=== PATIENT | female | born 1945 | race Caucasian/White ===

== ENCOUNTER 2017-02-10 11:58 | Observation (INO) ==
[2017-02-10] MEDS ORDERED: MORPHINE 2 MG/1 ML SYRINGE IV PRN (12:21)
[2017-02-10] MEDS ORDERED: ASPIRIN 325 MG TABLET PO STA (12:21)
[2017-02-10] MEDS ORDERED: ONDANSETRON 4 MG/2 ML VIAL IV PRN ×2 (12:21→17:03)
[2017-02-10 12:48] LABS: Basophils % 0.5 % (0.0-0.8); Eosinophils # 0.2 10*3/uL (0.0-0.87); Eosinophils % 2.8 % (0.00-10.9); Hematocrit 37.8 VOL% (35.7-47.0); Immature Granulocytes % 0.5 %; Immature Granulocytes Absolute 0.03 #; Lymphocytes % 31.9 % (21.3-54.2); Mean Corpuscular HGB Conc 34.4 GM/DL (32-36); Mean Corpuscular Hemoglobin 30 PG (27-34); Mean Corpuscular Volume 87.5 FL (87-102); Mean Platelet Volume 10.2 FL (9.6-12.0); Monocytes # 0.6 10*3/uL (0.11-0.8); Monocytes % 9.6 % (1.7-12.7); Neutrophils # 3.5 10*3/uL (1.4-7.4); Neutrophils % 54.7 % (38.7-73.9); Platelet Count 165 T/CUMM (130-400); Red Blood Count 4.32 MC/CUMM (3.8-5.5); Red Cell Distribution Width 14.2 % (9.3-17.3); White Blood Count 6.3 T/CUMM (4-12)
--- NOTE | 2017-02-10 12:51 | Emergency Department Note ---
Tee Painter Manpreet, am scribing for, and in the presence of, Jean Marie Conway MD 12: 32. Zoraida Painter James D, MD, personally performed the services described in this documentation, ascribed by Franko Oliveira in my presence, and it is both accurate and complete . Arrival - Arrival Chief Complaint: Chest Pain Stated Complaint: chest pain sob ED Nursing Triage Note: PT SENT FROM [facility] FOR EVALUATION OF CHEST PAIN. PT WAS THERE FOR EGD WHEN SHE INFORMED THEM SHE HAD CHEST PAIN AND SOB SINCE LAST TUESDAY. PT STATES PAIN IS ON THE LEFT AND DECRIBES "A MUSCLE HURTING." Mode of Arrival: Ambulatory Limitations: No Limitations Source: Patient Time Seen by Provider: 02/10/17 12:20 - History of Present Illness HPI Narrative: Pt is a 71 y/o female who is sent from the [facility] for further evaluation for her CP. Pt states the CP has been present since 02/04/17 and radiates to her back. Pt reports of SOB with the CP and walking. Pt's GI doctor is Dr. Teran. Pt was getting an upper scope because she had problem swallowing. No other pains/complaints reported to the ED. Onset (ago): day(s) Consistency: constant Severity: moderate Severity scale (1-10): 3 Allergies/Adverse Reactions: Allergies Allergy/AdvReac Type Severity Reaction Status Date / Time No Known Allergies Allergy Verified 02/10/17 12:12 Review of System - Review of System 12 point system: reviewed and no additional remarkable complaints except as stated - Review of System Constitutional: Absent: chills, diaphoresis, fever Head/Ears/Nose/Throat: Absent: sore throat Respiratory: Present: respiratory distress. Absent: cough Cardiovascular: Present: chest pain, dyspnea on exertion Gastrointestinal: Absent: abdominal pain, nausea, vomiting Musculoskeletal: Present: back pain. Absent: arm pain Neurological: Absent: headache, numbness, paresthesias Medical,Surgical,& Family Hx - Medical History Cardio: History of: Hypertension Endocrine: History of: Dyslipidemia, Thyroid Disorder Respiratory: History of: Asthma, COPD Gastrointestinal: History of: GERD - Surgical History HEENT Surgeries: Surgical HX of: Thyroid Surgery - Social History Smoking Status: Never smoker Frequency of Alcohol Use: None Type of Drug Use: None Exam Vital Signs: Vital Signs Temperature 97.4 F L 02/10/17 13:04 Pulse Rate 64 02/10/17 13:04 Respiratory Rate 18 02/10/17 13:04 Blood Pressure 139/74 02/10/17 13:04 O2 Sat by Pulse Oximetry 100 02/10/17 12:41 GENERAL: This is a well-nourished well-developed white female in no apparent distress. VITAL SIGNS: Reviewed HEENT: Head is atraumatic and normocephalic. Pupils are equal round react to light. Extraocular movements are intact. Oropharynx is benign with moist mucous membranes. NECK: Neck is soft and supple without tenderness. There are no masses. There is no lymphadenopathy. LUNGS: Lungs are clear to auscultation. Chest rises symmetrically. There is no chest wall tenderness. CV: Heart is regular rate and rhythm without murmurs rubs or gallops. ABDOMEN: Abdomen is soft, nontender to palpation. There are no abdominal abnormal masses palpated. There is no organomegaly. Bowel sounds are present and active. SKIN: Skin is warm and dry. No rash. EXTREMITIES: Patient has full range of motion without tenderness. There is no pedal edema. NEUROLOGIC: Awake alert and oriented 4. Cranial nerves II through XII are grossly intact. Motor is 5 over 5 in all extremities bilaterally. Course - Consultations Consultation #1: Discussed with hospitalist. Patient will be admitted to their service. Time: 15:30 Results - Labs CBC & BMP: 02/10/17 12:40 02/10/17 12:40 Lab Results: I have reviewed the patients labs - EKG EKG results: interpreted by ERMD - Impressions EKG: Normal sinus rhythm with rate of 62, low voltage QRS, nonspecific ST-T wave changes. - Diagnostic Findings Procedure: Chest x-ray: image reviewed by me (No infiltrates, no pleural effusions.) Disposition Clinical Impression: Chest pain Case discussed with: patient Condition: Stable
[2017-02-10 12:58] LABS: PT Patient Result 11.1 SECS; Partial Thromboplastin Time 25.6 SECS (0-40)
--- NOTE | 2017-02-10 13:01 | XRay Report ---
XR chest 2V Indication: Chest pain. Chest 2 views: No comparison. Heart size is normal. Aorta is slightly tortuous. Mediastinal contours are within normal limits. No discrete infiltrates are shown, but there is mild peribronchial thickening noted with some degree of hyperinflation. Pleural spaces are clear. Impression: Airways disease such as bronchitis or viral syndrome. PROCEDURE INTERPRETED AT [facility] DEPARTMENT OF RADIOLOGY Final Report Signed by: Juni Gross M.D.
[2017-02-10] MEDS ORDERED: ASPIRIN 325 MG TABLET ONE (13:07)
[2017-02-10 13:10] LABS: Albumin 3.5 G/DL (3.4-5.0); Bilirubin,Total 0.4 MG/DL (0.2-1.0); Calcium 9.3 MG/DL (8.5-10.1); Osmolality,Calculated 278.5 MOS/KG (273-304); Potassium 3.3 MMOL/L (3.5-5.1)
[2017-02-10] MEDS ORDERED: DOCUSATE SODIUM 100 MG CAPSULE PO PRN (17:03)
[2017-02-10] MEDS ORDERED: guaiFENesin/DM ER 600-30 MG TABLET PO PRN (17:03)
[2017-02-10] MEDS ORDERED: ACETAMINOPHEN 325 MG TABLET PO PRN (17:03)
--- NOTE | 2017-02-10 17:19 | Hospitalist History & Physical ---
Assessment and Plan - Time spent with patient Time spent with patient: Greater than 30 minutes (1) Chest pain Status: Acute Assessment and plan: Patient is a 71-year-old female admitted for evaluation of atypical chest pain. Chest pain symptoms present for the past 6 days. Patient has not identified any precipitating or relieving factors. She denies previous similar symptoms. She reports previous ischemic heart disease evaluation including nuclear medicine stress test and cardiac catheterization 5 years ago. By her report all testing was normal. Her current symptoms are not similar to her symptoms prior to previous stress test and LHC. Ischemic heart disease risk factors include essential hypertension, dyslipidemia, and obesity. Recommend observation status with telemetry monitoring, cycle cardiac enzymes, stress echocardiogram, repeat EKG in a.m. I have low clinical suspicion for acute coronary syndrome. Current Visit: Yes (2) Obstructive sleep apnea Status: Chronic Assessment and plan: Overnight CPAP with low flow oxygen therapy. Patient's daughter volunteers to bring patient's admission from home for patient's use while hospitalized. Continue telemetry monitoring and continuous pulse oximetry monitoring. Minimize use of sedative narcotic medications that might increase CO2 retention. Current Visit: Yes (3) Dyslipidemia Status: Chronic Assessment and plan: Recommend diet modification to decrease total cholesterol and LDL cholesterol while increasing HDL cholesterol. Check fasting lipid panel in a.m. Current Visit: Yes (4) Pulmonary hypertension Status: Chronic Assessment and plan: Patient reports completing previous right heart catheterization to document pulmonary hypertension. She does not recall right heart or pulmonary artery pressures. No specific medications on record as treatment for suspected pulmonary hypertension. Current Visit: Yes (5) COPD (chronic obstructive pulmonary disease) Status: Chronic Assessment and plan: Without acute exacerbation; continue supplemental oxygen as needed and nebulized bronchodilator therapy. Current Visit: Yes (6) Hypokalemia Status: Acute Assessment and plan: Supplements ordered. Check serum magnesium level, supplement as indicated. Current Visit: Yes History of Present Illness Chief complaint: Atypical chest pain History of present illness: Ms. Zuniga is a 71 year old female referred from outpatient endoscopy suite for evaluation of chest pain complaints. Patient presented for scheduled upper endoscopy. During the intake process she casually mentioned that she had left chest pressure. Staff referred patient to the hospital emergency department for additional evaluation. Patient was not seen by emergency department attending but rather hospitalists were consulted to admit patient. Patient states that her current chest pressure has been present for several weeks. She has not identified any precipitating or relieving factors. She denies formal dysphasia. As mentioned above she has not identified any precipitating or relieving factors. She is not tried any medications to decrease her chest discomfort. She denies associated diaphoresis, nausea, vomiting, palpitations, increased work of breathing, recent systemic fever, or shortness of breath. Her only known ischemic heart disease risk factors include essential hypertension, dyslipidemia, and obesity. She reports previous ischemic heart disease workup including nuclear medicine stress test and left heart catheterization approximately 5 years ago. She reports that all testing was normal and no additional medications were prescribed. Home Medications Medication Instructions Recorded Confirmed Type Albuterol Tab [Proventil Tab] 1 mg PO TID 02/10/17 02/10/17 History Atenolol [Atenolol] 50 mg PO QAM 02/10/17 02/10/17 History Cetirizine Tab [ZyrTEC Tab] 10 mg PO BEDTIME 02/10/17 02/10/17 History Cholecalciferol (Vitamin D3) 2,000 unit PO QAM 02/10/17 02/10/17 History [Vitamin D3] Citalopram [CeleXA] 40 mg PO QAM 02/10/17 02/10/17 History Esomeprazole Magnesium 40 mg PO BEDTIME 02/10/17 02/10/17 History [Esomeprazole] Ferrous Sulfate Tab [Feosol 325 mg PO QAM 02/10/17 02/10/17 History Original Tab] Fluticasone/Vilanterol [Breo 1 puff INH QAM 02/10/17 02/10/17 History Ellipta 200-25 Mcg INH] Gabapentin [Gabapentin] 300 mg PO BEDTIME 02/10/17 02/10/17 History Montelukast Tab [Singulair Tab] 10 mg PO BID 02/10/17 02/10/17 History Potassium Chloride 10 meq PO QAM 02/10/17 02/10/17 History Rosuvastatin [Crestor] 10 mg PO QAM 02/10/17 02/10/17 History hydroCHLOROthiazide 25 mg PO QAM 02/10/17 02/10/17 History [Hydrochlorothiazide] Allergies Allergy/AdvReac Type Severity Reaction Status Date / Time No Known Allergies Allergy Verified 02/10/17 12:12 Medical,Surgical,& Family Hx - Medical History Cardio: History of: Hypertension HEENT: History of: Ear Problem (She wears bilateral hearing aids for sounding amplification ) Endocrine: History of: Dyslipidemia, Thyroid Disorder Respiratory: History of: Asthma, COPD, Obstructive Sleep Apnea, Pulmonary Hypertension (Right heart catheterization completed to confirm this diagnosis 5 years ago) Genitourinary: History of: Bladder Problem (Patient believes she may have developed urinary retention. ) Gastrointestinal: History of: GERD - Surgical History HEENT Surgeries: Surgical HX of: Thyroid Surgery - Family History Family History: Reports;: Additional Family History (Patient's mother of dementia complications age 86; ) - Social History Smoking Status: Never smoker Frequency of Alcohol Use: None Type of Drug Use: None Marital Status: Lives With:: Patient's brother of alcoholism complications; second brother has heart disease Functional capacity: independent ambulation - Constitutional Constitutional: Present: daytime sleepiness (Corrected by wearing overnight CPAP unit) - Cardiovascular Cardiovascular: Present: chest pain at rest, dyspnea on exertion. Absent: chest pain with activity, claudication, diaphoresis, dyspnea, edema, orthopnea, palpitations, PND - Respiratory Respiratory: Present: dyspnea on exertion, wheezing, snoring - Gastrointestinal Gastrointestinal: Present: dyspepsia, early satiety. Absent: hematemesis, hematochezia, melena, nausea, odynophagia, vomiting - Musculoskeletal Musculoskeletal: Present: arthralgias. Absent: joint swelling, muscle weakness Exam - Constitutional Vitals: Period Temp Pulse Resp BP Sys/Mckeon Pulse Ox Last 24 Hr 97.4 F-97.4 F 60-64 12-19 128-139/37-76 97-100 General appearance: over weight - Head Head exam: Present: normal inspection - Eye Eye exam: Present: EOMI Pupils: Present: ARI - ENT ENT exam: Present: normal exam (Except decreased auditory acuity bilaterally) - Neck Neck exam: Present: normal inspection, other (No audible bruits). Absent: meningismus, tenderness - Respiratory Respiratory exam: Present: clear to auscultation bilaterally - Cardiovascular Cardiovascular exam: Present: regular rate and rhythm, other (No anterior chest wall tenderness to palpation) - GI/Abdominal GI/Abdominal exam: Present: normal bowel sounds, distended, soft. Absent: tenderness, rebound - Extremities Exam Extremities exam: Present: normal inspection. Absent: calf tenderness, edema - Back Exam Back exam: Present: normal inspection - Neurological Exam Neurological exam: Present: alert, oriented X3 - Psychiatric Psychiatric exam: Present: normal affect, normal mood - Skin Skin exam: Present: normal color, warm, dry. Absent: rash Results - Labs CBC & BMP: 02/10/17 12:40 02/10/17 12:40 - EKG EKG results: normal axis (No diagnostic acute ischemic changes) - Diagnostic Findings Procedure: Chest x-ray: other (No acute lung infiltrates reported; peribronchial thickening) Quality Measures - VTE Contraindication to Pharmacological VTE Prophylaxis: Clinical assessment deems Pt at low risk, no prophalaxis needed
[2017-02-10 18:03] LABS: Basophils % 0.5 % (0.0-0.8); Eosinophils # 0.2 10*3/uL (0.0-0.87); Eosinophils % 3.3 % (0.00-10.9); Hematocrit 39.1 VOL% (35.7-47.0); Hemoglobin 13.2 GM/DL (12.0-16.0); Immature Granulocytes % 0.5 %; Immature Granulocytes Absolute 0.03 #; Lymphocytes # 2.5 10*3/uL (1.4-4.0); Lymphocytes % 37.2 % (21.3-54.2); Mean Corpuscular HGB Conc 33.8 GM/DL (32-36); Mean Corpuscular Hemoglobin 30 PG (27-34); Mean Corpuscular Volume 87.3 FL (87-102); Monocytes # 0.6 10*3/uL (0.11-0.8); Monocytes % 8.6 % (1.7-12.7); Neutrophils # 3.3 10*3/uL (1.4-7.4); Neutrophils % 49.9 % (38.7-73.9); Platelet Count 179 T/CUMM (130-400); Red Blood Count 4.48 MC/CUMM (3.8-5.5); Red Cell Distribution Width 14.3 % (9.3-17.3); White Blood Count 6.6 T/CUMM (4-12)
[2017-02-10 18:23] LABS: PT Patient Result 11.1 SECS; Partial Thromboplastin Time 25.5 SECS (0-40)
[2017-02-10 18:37] LABS: Albumin 3.6 G/DL (3.4-5.0); Bilirubin,Total 0.6 MG/DL (0.2-1.0); Calcium 9.2 MG/DL (8.5-10.1); Magnesium 2.3 MG/DL (1.8-2.4); Osmolality,Calculated 279.4 MOS/KG (273-304); Potassium 3.5 MMOL/L (3.5-5.1); Total Protein 6.7 G/DL (6.4-8.3)
[2017-02-10] MEDS: ARFORMOTEROL 15 MCG/2 ML NEB RESP TX SCH (20:41)
[2017-02-10] MEDS: BUDESONIDE 0.25 MG/2 ML NEB RESP TX SCH (20:41)
--- NOTE | 2017-02-11 07:22 | EKG Report ---
Stationary ECG Study [facility] Test Date: 02/11/2017 7:19:56 AM Pat Name: AUSTYN KIM Department: Room: 272 Gender: F Sommelier: : 1945 Requested by: Jayleen Martinez Order Number: [id number] Reading MD: MARCELA NESBITT Intervals [place] Rate: 66 P: 58 PA: 174 QRS: 50 QRSD: 99 T: 56 QT: 426 QTc: 440 Interpretive Statements SINUS RHYTHM LOW QRS VOLTAGE IN PRECORDIAL LEADS Electronically Signed On 02-11-17 13:08:19 CDT by MARCELA NESBITT [email or web address]
[2017-02-11] MEDS: ARFORMOTEROL 15 MCG/2 ML NEB RESP TX SCH ×2 (07:42→19:54)
[2017-02-11] MEDS: BUDESONIDE 0.25 MG/2 ML NEB RESP TX SCH ×2 (07:42→19:55)
--- NOTE | 2017-02-11 07:48 | EKG Report ---
Stationary ECG Study [facility] ER Test Date: 02/10/2017 12:14:33 PM Pat Name: AUSTYN KIM Department: Room: 272 Gender: F Serology Technician: : 1945 Requested by: Jean Marie Rosas Order Number: [id number] Reading MD: MARCELINO MAJOR Intervals [place] Rate: 62 P: 40 NV: 169 QRS: 5 QRSD: 97 T: 51 QT: 416 QTc: 422 Interpretive Statements SINUS RHYTHM LOW QRS VOLTAGE IN CHEST LEADS Electronically Signed On 02-11-17 12:36:27 CDT by MARCELINO MAJOR [email or web address]
[2017-02-11 09:05] LABS: Basophils % 0.2 % (0.0-0.8); Basophils % 0.5 % (0.0-0.8); Eosinophils # 0.1 10*3/uL (0.0-0.87); Eosinophils % 2.5 % (0.00-10.9); Hematocrit 39.3 VOL% (35.7-47.0); Hematocrit 39.7 VOL% (35.7-47.0); Hemoglobin 13.1 GM/DL (12.0-16.0); Immature Granulocytes % 0.5 %; Immature Granulocytes Absolute 0.02 #; Lymphocytes # 1.7 10*3/uL (1.4-4.0); Lymphocytes # 1.9 10*3/uL (1.4-4.0); Lymphocytes % 42.4 % (21.3-54.2); Lymphocytes % 43.1 % (21.3-54.2); Mean Corpuscular HGB Conc 32.7 GM/DL (32-36); Mean Corpuscular HGB Conc 33.3 GM/DL (32-36); Mean Corpuscular Hemoglobin 29 PG (27-34); Mean Corpuscular Hemoglobin 30 PG (27-34); Mean Corpuscular Volume 89.1 FL (87-102); Mean Corpuscular Volume 89.2 FL (87-102); Mean Platelet Volume 10.2 FL (9.6-12.0); Mean Platelet Volume 10.5 FL (9.6-12.0); Monocytes # 0.4 10*3/uL (0.11-0.8); Monocytes % 8.9 % (1.7-12.7); Monocytes % 9.2 % (1.7-12.7); Neutrophils # 1.8 10*3/uL (1.4-7.4); Neutrophils # 1.9 10*3/uL (1.4-7.4); Neutrophils % 44.2 % (38.7-73.9); Platelet Count 166 T/CUMM (130-400); Platelet Count 170 T/CUMM (130-400); Red Blood Count 4.41 MC/CUMM (3.8-5.5); Red Blood Count 4.45 MC/CUMM (3.8-5.5); Red Cell Distribution Width 14.3 % (9.3-17.3); Red Cell Distribution Width 14.5 % (9.3-17.3); White Blood Count 4.3 T/CUMM (4-12)
[2017-02-11 09:32] LABS: Calcium 9.3 MG/DL (8.5-10.1); Magnesium 2.2 MG/DL (1.8-2.4); Osmolality,Calculated 279.4 MOS/KG (273-304); Potassium 3.3 MMOL/L (3.5-5.1)
[2017-02-11] MEDS ORDERED: POLYVINYL ALCOHOL 1.4% OPH SOLN 15 ML BOTTLE BOTH EYES PRN (09:52)
--- NOTE | 2017-02-11 10:43 | Cardiology Consult Note ---
Assessment and Plan - Time spent with patient Time spent with patient: Greater than 30 minutes (1) Dyspnea on exertion Status: Acute Assessment and plan: SEE PLAN OF CARE LISTED BELOW Current Visit: Yes (2) Hypertension Status: Chronic Assessment and plan: SEE PLAN OF CARE LISTED BELOW Current Visit: Yes (3) Chest pain Status: Acute Assessment and plan: SEE PLAN OF CARE LISTED BELOW Current Visit: Yes (4) COPD (chronic obstructive pulmonary disease) Status: Chronic Assessment and plan: SEE PLAN OF CARE LISTED BELOW Current Visit: Yes (5) Dyslipidemia Status: Chronic Assessment and plan: SEE PLAN OF CARE LISTED BELOW Current Visit: Yes (6) Obstructive sleep apnea Status: Chronic Assessment and plan: SEE PLAN OF CARE LISTED BELOW Current Visit: Yes History of Present Illness - Data of Consult Patient: known to practice within the last 3 years Consult date: 02/11/17 Requesting Physician: Marek Martinez III - Consult Narrative Reason for consult: chest pain, SOB History of present illness: MANAGER RELIABILITY: DR. WOLFF Ms. Zuniga, 71WF, previously followed by Dr. Wolff. Risk factors include: Hypertension, dyslipidemia, obesity, family history of premature coronary artery disease, sedentary lifestyle. History of COPD, obstructive sleep apnea ( compliant with device). Patient had a heart catheterization 02/22/[address] Wolff which revealed no significant coronary obstruction. Presented to the ED of [facility] 02/10/2017 with complaints of chest pain located in the left upper chest area. This has been occurring intermittently 1 week. Located in the left upper chest area and is reproducible to palpation. When she turns her head to the left side the chest pain radiates to her left scapula area. Cardiac biomarkers are negative, EKG is unremarkable. More concerning, however, patient reports a decrease in her exercise tolerance since July 2016. States she cannot take 2 flights of stairs without having to rest due to shortness of breath. She believes she could have taken 2 flights of stairs without difficulty approximately 1 year ago. She no longer walks to her mailbox and back, instead drives her car. She avoids many activities she previously could perform due to significant shortness of breath. Denies cough. She feels as if the shortness of breath is worsening in intensity, duration and frequency. At this time, I will keep patient NPO. We discussed the possibility of stress testing versus cardiac catheterization. Given the significant change in her exercise tolerance, patient may benefit from heart catheterization and she is agreeable to proceed. I will discuss with Dr. Milian and await additional recommendations. ASSESSMENT/PLAN: 1. CHEST PAIN - appears to be musculoskeletal in nature given the reproducibility component. We will treat with NSAIDs. 2. CASTANEDA - concerning for anginal equivalent. Keeping NPO for possible cardiac catheterization 3. HYPERTENSION - usually well controlled. Currently on beta blockade. Will adjust medications accordingly during the hospital stay. 4. DYSLIPIDEMIA - Crestor each evening. Fasting lipid profile this morning 5. COPD - continue current plan of care CC: Marek Martinez III - Home Medications and Allergies Home Medications: Home Medications Medication Instructions Recorded Confirmed Type Albuterol Tab [Proventil Tab] 1 mg PO TID 02/10/17 02/10/17 History Atenolol [Atenolol] 50 mg PO QAM 02/10/17 02/10/17 History Cetirizine Tab [ZyrTEC Tab] 10 mg PO BEDTIME 02/10/17 02/10/17 History Cholecalciferol (Vitamin D3) 2,000 unit PO QAM 02/10/17 02/10/17 History [Vitamin D3] Citalopram [CeleXA] 40 mg PO QAM 02/10/17 02/10/17 History Esomeprazole Magnesium 40 mg PO BEDTIME 02/10/17 02/10/17 History [Esomeprazole] Ferrous Sulfate Tab [Feosol 325 mg PO QAM 02/10/17 02/10/17 History Original Tab] Fluticasone/Vilanterol [Breo 1 puff INH QAM 02/10/17 02/10/17 History Ellipta 200-25 Mcg INH] Gabapentin [Gabapentin] 300 mg PO BEDTIME 02/10/17 02/10/17 History Montelukast Tab [Singulair Tab] 10 mg PO BID 02/10/17 02/10/17 History Potassium Chloride 10 meq PO QAM 02/10/17 02/10/17 History Rosuvastatin [Crestor] 10 mg PO QAM 02/10/17 02/10/17 History hydroCHLOROthiazide 25 mg PO QAM 02/10/17 02/10/17 History [Hydrochlorothiazide] Allergies/Adverse Reactions: Allergies Allergy/AdvReac Type Severity Reaction Status Date / Time No Known Allergies Allergy Verified 02/10/17 12:12 Review of systems: REVIEW OF SYSTEMS: See HPI - Constitutional Constitutional: Present: Fatigue. Absent: syncope, anorexia, night sweats - EENT Eyes: Absent: blurry vision, loss of vision, diplopia Ears: Absent: decreased hearing, ear pain, ear discharge - Cardiovascular Cardiovascular: Present: chest pain with certain movements, palpation. Denies edema, palpitations. Absent: chest pain with deep breath, claudication - Respiratory Respiratory: Present: CASTANEDA, denies cough. Absent: wheezing, hemoptysis, change in phlegm color - Gastrointestinal Gastrointestinal: Denies: constipation. Absent: abdominal pain, hematemesis, hematochezia, melena, change in bowel habits, nausea - Genitourinary Genitourinary: Absent: difficulty urinating, dysuria, urinary hesitancy, flank pain - Musculoskeletal Musculoskeletal: Present: back pain Absent: joint swelling, muscle cramps, muscle weakness - Neurological Neurological: Present: normal gait without frequent falls. Absent: dizziness, hemiparesis - Psychiatric Psychiatric: Absent: anxiety, depression, difficulty concentrating - Endocrine Endocrine: Absent: cold intolerance, heat intolerance, polyuria, polyphagia, polydipsia - Hematologic/Lymphatic Hematologic/Lymphatic: Present: easy bruising. Absent: easy bleeding -Integumentary Integumentary: Absent: lesions, rashes, skin breakdown Medical,Surgical,& Family Hx - Medical History Cardio: History of: Hypertension No history of: CAD, IN HEENT: History of: Ear Problem (She wears bilateral hearing aids for sounding amplification ) Endocrine: History of: Dyslipidemia, Thyroid Disorder Respiratory: History of: Asthma, COPD, Obstructive Sleep Apnea, Pulmonary Hypertension (Right heart catheterization completed to confirm this diagnosis 5 years ago) Genitourinary: History of: Bladder Problem (Patient believes she may have developed urinary retention. ) Gastrointestinal: History of: GERD - Surgical History HEENT Surgeries: Surgical HX of: Thyroid Surgery - Family History Family History: Reports;: Additional Family History (Patient's mother of dementia complications age 86; ) - Social History Smoking Status: Never smoker Have you smoked in the last 12 months: No Frequency of Alcohol Use: None Type of Drug Use: None Physical Examination Vital Signs Temp Pulse Resp BP Pulse Ox 97.4 F L 64 18 139/74 97 02/10/17 12:08 02/10/17 12:08 02/10/17 12:08 02/10/17 12:08 02/10/17 12:08 Exam: General: [Appears well with no apparent distress.] [Pleasant and cooperative. ] [Appears comfortable.] HEENT: [PERRL, normocephalic, atraumatic. Mucous membranes moist. No jaundice noted. Conjunctiva moist and clear, sclerae anicteric] Neck: No JVD/HJR, no thyromegaly or lymphadenopathy noted. No carotid bruit appreciated Cardiac: [Regular rate and rhythm.] [No obvious murmur rub or gallop.] Lungs: [Clear to auscultation without accessory muscle use to assist the respiratory pattern.] Requiring oxygen Abdomen: Soft, bowel sounds normoactive. Nontender and nondistended. No abdominal bruit or thrill noted. No masses noted. Musculoskeletal: No fluid collection. Decreased range of motion is noted. Extremities: No clubbing, cyanosis noted. [ No edema noted.] Upper extremity pulses 2+. Lower extremity pulses 2+. Capillary refill less than 3 seconds. Skin: No unusual lesions or rashes. No skin breakdown appreciated. Neuro: Awake, alert and oriented 3. Moves all extremities well without hemiparesis or paralysis. No essential tremor is appreciated. Result/EKG - Labs CBC & BMP: 02/11/17 08:28 02/11/17 08:28 Lab Results: I have reviewed the past 24 hour labs Labs: Laboratory Results - last 24 hr 02/10/17 02/10/17 02/10/17 12:40 12:40 12:40 WBC 6.3 RBC 4.32 Hgb 13.0 Hct 37.8 MCV 87.5 MCH 30 MCHC 34.4 RDW 14.2 Plt Count 165 MPV 10.2 Neut % (Auto) 54.7 Lymph % (Auto) 31.9 King % (Auto) 9.6 Eos % (Auto) 2.8 Baso % (Auto) 0.5 Neut # (Auto) 3.5 Lymph # (Auto) 2.0 King # (Auto) 0.6 Eos # (Auto) 0.2 Baso # (Auto) 0.0 Immature Gran % 0.5 Nucleated RBC % 0.0 Immature Gran # 0.03 Nucleated RBCs # 0.00 Immature Plt Fraction 0.0 INR 1.0 PT Patient/Control Mix 11.1 D-Dimer, Quantitative Circ Anticoag PTT 25.6 Sodium 139 Potassium 3.3 L Chloride 105 Carbon Dioxide 27 Anion Gap 10.3 BUN 19 H Creatinine 1.00 GFR Calculation 63 BUN/Creatinine Ratio 19.00 Glucose 95 Calculated Osmolality 278.5 Calcium 9.3 Magnesium Total Bilirubin 0.40 AST 21 ALT 32 Alkaline Phosphatase 104 Troponin I Total Protein 7.0 Albumin 3.5 Globulin 3.5 Albumin/Globulin Ratio 1.0 L 02/10/17 02/10/17 02/10/17 12:40 17:07 17:52 WBC 6.6 RBC 4.48 Hgb 13.2 Hct 39.1 MCV 87.3 MCH 30 MCHC 33.8 RDW 14.3 Plt Count 179 MPV 10.0 Neut % (Auto) 49.9 Lymph % (Auto) 37.2 King % (Auto) 8.6 Eos % (Auto) 3.3 Baso % (Auto) 0.5 Neut # (Auto) 3.3 Lymph # (Auto) 2.5 King # (Auto) 0.6 Eos # (Auto) 0.2 Baso # (Auto) 0.0 Immature Gran % 0.5 Nucleated RBC % 0.0 Immature Gran # 0.03 Nucleated RBCs # 0.00 Immature Plt Fraction 2.4 INR PT Patient/Control Mix D-Dimer, Quantitative Circ Anticoag PTT Sodium 140 Potassium 3.5 Chloride 106 Carbon Dioxide 29 Anion Gap 8.5 BUN 19 H Creatinine 1.10 H GFR Calculation 56 BUN/Creatinine Ratio 17.00 Glucose 89 Calculated Osmolality 279.4 Calcium 9.2 Magnesium 2.3 Total Bilirubin 0.60 AST 22 ALT 32 Alkaline Phosphatase 107 Troponin I < 0.015 Total Protein 6.7 Albumin 3.6 Globulin 3.1 Albumin/Globulin Ratio 1.1 02/10/17 02/10/17 02/10/17 17:52 17:52 17:52 WBC RBC Hgb Hct MCV MCH MCHC RDW Plt Count MPV Neut % (Auto) Lymph % (Auto) King % (Auto) Eos % (Auto) Baso % (Auto) Neut # (Auto) Lymph # (Auto) King # (Auto) Eos # (Auto) Baso # (Auto) Immature Gran % Nucleated RBC % Immature Gran # Nucleated RBCs # Immature Plt Fraction INR 1.0 PT Patient/Control Mix 11.1 D-Dimer, Quantitative <= 0.5 Circ Anticoag PTT 25.5 Sodium Potassium Chloride Carbon Dioxide Anion Gap BUN Creatinine GFR Calculation BUN/Creatinine Ratio Glucose Calculated Osmolality Calcium Magnesium Total Bilirubin AST ALT Alkaline Phosphatase Troponin I < 0.015 Total Protein Albumin Globulin Albumin/Globulin Ratio 02/10/17 02/11/17 02/11/17 17:52 08:28 08:28 WBC 4.3 D RBC 4.45 Hgb 13.0 Hct 39.7 MCV 89.2 MCH 29 MCHC 32.7 RDW 14.3 Plt Count 166 MPV 10.2 Neut % (Auto) 44.2 Lymph % (Auto) 43.1 King % (Auto) 9.2 Eos % (Auto) 2.5 Baso % (Auto) 0.5 Neut # (Auto) 1.9 Lymph # (Auto) 1.9 King # (Auto) 0.4 Eos # (Auto) 0.1 Baso # (Auto) 0.0 Immature Gran % 0.5 Nucleated RBC % 0.0 Immature Gran # 0.02 Nucleated RBCs # 0.00 Immature Plt Fraction 0.0 INR PT Patient/Control Mix D-Dimer, Quantitative Circ Anticoag PTT Sodium 140 Potassium 3.3 L Chloride 104 Carbon Dioxide 28 Anion Gap 11.3 BUN 16 Creatinine 1.10 H GFR Calculation 56 BUN/Creatinine Ratio 14.00 Glucose 105 Calculated Osmolality 279.4 Calcium 9.3 Magnesium 2.3 2.2 Total Bilirubin AST ALT Alkaline Phosphatase Troponin I Total Protein Albumin Globulin Albumin/Globulin Ratio 02/11/17 02/11/17 08:28 08:28 WBC 4.0 RBC 4.41 Hgb 13.1 Hct 39.3 MCV 89.1 MCH 30 MCHC 33.3 RDW 14.5 Plt Count 170 MPV 10.5 Neut % (Auto) 45.0 Lymph % (Auto) 42.4 King % (Auto) 8.9 Eos % (Auto) 3.0 Baso % (Auto) 0.2 Neut # (Auto) 1.8 Lymph # (Auto) 1.7 King # (Auto) 0.4 Eos # (Auto) 0.1 Baso # (Auto) 0.0 Immature Gran % 0.5 Nucleated RBC % 0.0 Immature Gran # 0.02 Nucleated RBCs # 0.00 Immature Plt Fraction 0.0 INR PT Patient/Control Mix D-Dimer, Quantitative Circ Anticoag PTT Sodium Potassium Chloride Carbon Dioxide Anion Gap BUN Creatinine GFR Calculation BUN/Creatinine Ratio Glucose Calculated Osmolality Calcium Magnesium Total Bilirubin AST ALT Alkaline Phosphatase Troponin I < 0.015 Total Protein Albumin Globulin Albumin/Globulin Ratio - Diagnostic Findings Procedure: Chest x-ray: report reviewed by me - EKG EKG results: interpreted by me EKG shows: sinus rhythm Quality Measures - VTE Contraindication to Pharmacological VTE Prophylaxis: Clinical assessment deems Pt at low risk, no prophalaxis needed
[2017-02-11] MEDS ORDERED: diphenhydrAMINE CAP 25 MG CAPSULE PO ONE (10:47)
[2017-02-11] MEDS ORDERED: MAGNESIUM SULF RIDER 2 GM in PREMIX 1 EACH IV PRN (10:47)
[2017-02-11] MEDS ORDERED: DIAZEPAM 5 MG TABLET PO ONE (10:47)
[2017-02-11] MEDS ORDERED: POTASSIUM CHLORIDE RIDER 10 MEQ in PREMIX 1 EACH IV PRN (10:47)
[2017-02-11 11:08] LABS: Risk Ratio 3.74; VLDL CHOLESTEROL 39.2 MG/DL
[2017-02-11] MEDS: PANTOPRAZOLE 40 MG TABLET PO SCH (11:43)
[2017-02-11] MEDS: SODIUM CHLORIDE 0.45% 1,000 ML IV SCH (11:43)
[2017-02-11] MEDS ORDERED: MIDAZOLAM 2 MG/2 ML VIAL ONE (13:31)
[2017-02-11] MEDS ORDERED: HYDROmorphone 2 MG/1 ML VIAL ONE (13:31)
[2017-02-11] MEDS ORDERED: NITROGLYCERIN DRIP 50 MG/250 ML BOTTLE IV ONE (13:31)
[2017-02-11] MEDS ORDERED: VERAPAMIL 5 MG/2 ML VIAL ONE (13:33)
[2017-02-11] MEDS ORDERED: LIDOCAINE 1% 20 ML VIAL ONE (13:40)
[2017-02-11] MEDS ORDERED: ENOXAPARIN 60 MG/0.6 ML SYRINGE ONE (13:59)
--- NOTE | 2017-02-11 14:24 | Cardiac Catheterization ---
Date of Procedure:: 02/11/17 Post-op diagnosis: same Procedure: Procedure performed: Coronary angiography Brief clinical summary: Ms. Parisi is a 71-year-old with recurrent chest pain to rule out for PA and has risk factors for coronary artery disease. Description of procedure: After obtaining informed consent the patient transferred to the catheterization lab, and the right wrist was prepped and draped in the usual sterile fashion. Next a short 6 B[place]ud[place] sheath was placed in the right radial artery using the Seldinger technique after the patient received IV sedation, and local anesthetic. I then injected a vasodilator cocktail into the sheath. We gave her 0.5 mg per kilogram of intravenous Lovenox prior to the procedure. Next a 6 [place] Dung catheter was advanced and engaged to the left coronary artery after which angiogram was performed in multiple views. This was then pulled back and manipulated, but I was unable to engage the right coronary artery. Therefore I changed out over a wire for a JR 3.5 catheter and with some difficulty I was able to obtaine angiograms in multiple views. The catheter was removed over a J-wire. Hemostasis was obtained with a TR band, using "patent hemostasis" technique. The patient was transferred from the catheterization lab in good condition. Coronary angiography: Left main coronary is normal developed and free of disease. Left anterior descending artery is of average caliber proximally but tapers distally does not reach the apex. Gives off one large diagonal branch. There are mild to moderate irregularities with no discrete lesions. The circumflex vessels of average caliber and gives off a large OM1 branch and a thin OM 2 and OM 3 branch. The only moderate regular is no discrete lesions. Right coronary is very large and dominant vessel giving off a large long PDA and a couple of thinner posterior lateral branch. Mild irregularities are present without discrete lesions. I did advance a pigtail catheter was unable to advance into the ascending aorta and so retracted over a J-wire. Impression: 1. Right dominant system 2. Normal coronary arteries other than mild irregularities, without any discrete lesions. Recommendation discussion: Given these findings is clear Ms. Zuniga chest pain is not related to coronary artery disease. If LV function is needed echocardiogram could be used to evaluate this. She will need to keep her right radial access site clean, when she will be sent to the floor for routine post cath observation. Anesthesia: minimal conscious sedation Surgeon / Physician: Jose Valerio Paper Cup Handle Machine Operator: other Estimated blood loss: minimal Specimens: none sent Condition: stable Disposition: floor - Medications / Follow-up
--- NOTE | 2017-02-11 17:06 | Hospitalist Progress Note ---
Assessment and Plan (1) Chest pain Status: Acute Assessment and plan: Patient is a 71-year-old female admitted for evaluation of atypical chest pain. Chest pain symptoms present for the past 6 days. Patient has not identified any precipitating or relieving factors. She denies previous similar symptoms. She reports previous ischemic heart disease evaluation including nuclear medicine stress test and cardiac catheterization 5 years ago. By her report all testing was normal. Her current symptoms are not similar to her symptoms prior to previous stress test and LHC. Ischemic heart disease risk factors include essential hypertension, dyslipidemia, and obesity. Recommend observation status with telemetry monitoring, cycle cardiac enzymes, stress echocardiogram, repeat EKG in a.m. I have low clinical suspicion for acute coronary syndrome. 02/11/2017: Acute myocardial infarction ruled out. Normal coronary anatomy by left heart catheterization today. Post catheterization observation overnight. Patient should be stable for discharge home in a.m. Current Visit: Yes (2) Obstructive sleep apnea Status: Chronic Assessment and plan: Overnight CPAP with low flow oxygen therapy. Patient's daughter volunteers to bring patient's admission from home for patient's use while hospitalized. Continue telemetry monitoring and continuous pulse oximetry monitoring. Minimize use of sedative narcotic medications that might increase CO2 retention. 02/11/2017: Patient is using her CPAP unit from home while sleeping overnight. Current Visit: Yes (3) Dyslipidemia Status: Chronic Assessment and plan: Recommend diet modification to decrease total cholesterol and LDL cholesterol while increasing HDL cholesterol. Check fasting lipid panel in a.m. 02/11/2017: Fasting lipid panel total cholesterol 161, triglycerides 196, LDL 79 , HDL 43. Patient is not receiving and does not require pharmacologic lipid lowering treatment. She may benefit from diet modification to accomplish weight reduction and reduction of dietary fats and cholesterol. Current Visit: Yes (4) Pulmonary hypertension Status: Chronic Assessment and plan: Patient reports completing previous right heart catheterization to document pulmonary hypertension. She does not recall right heart or pulmonary artery pressures. No specific medications on record as treatment for suspected pulmonary hypertension. 02/11/2017: Right heart pressures not reported on catheterization study today. Echocardiogram ordered, report is not yet available. Current Visit: Yes (5) COPD (chronic obstructive pulmonary disease) Status: Chronic Assessment and plan: Without acute exacerbation; continue supplemental oxygen as needed and nebulized bronchodilator therapy. 02/11/2017: No acute exacerbation symptoms. I did add Brovana and Pulmicort nebulizer treatments. Patient believes that these 2 have improved her ease of respiration and perhaps exercise tolerance. Current Visit: Yes (6) Hypokalemia Status: Acute Assessment and plan: Supplements ordered. Check serum magnesium level, supplement as indicated. 02/11/2017: Additional potassium supplements ordered. Patient's serum magnesium level is within normal range. Recheck BMP with magnesium level in a.m. Current Visit: Yes Hospitalist: Subjective Interval history: 02/11/2017: Patient is a 71-year-old female admitted for evaluation of atypical chest pain. Patient had previous nuclear medicine stress test and left heart catheterization both reportedly normal perhaps 5 years ago. Acute myocardial infarction ruled out this hospital stay. I initially requested nuclear medicine stress test today. professional housing consultant preferred left heart catheterization. Patient completed left heart catheterization earlier today with normal coronary artery report. Exam - Constitutional Vitals: Period Temp Pulse Resp BP Sys/Mckeon Pulse Ox Last 24 Hr 96.3 F-98.1 F 63-75 16-20 128-144/65-81 92-100 General appearance: over weight - Head Head exam: Present: normal inspection - Eye Eye exam: Present: EOMI - Neck Neck exam: Absent: meningismus, tenderness - Respiratory Respiratory exam: Present: clear to auscultation bilaterally. Absent: rales, rhonchi, wheezes - Cardiovascular Cardiovascular exam: Present: regular rate and rhythm - GI/Abdominal GI/Abdominal exam: Present: normal bowel sounds, distended, soft, other (Obese) . Absent: tenderness, rebound - Extremities Exam Extremities exam: Present: normal inspection. Absent: calf tenderness, edema - Neurological Exam Neurological exam: Present: alert, oriented X3 - Psychiatric Psychiatric exam: Present: normal mood - Skin Skin exam: Present: normal color, warm, dry. Absent: rash Results - Labs CBC & BMP: 02/11/17 08:28 02/11/17 08:28 Quality Measures - VTE Contraindication to Pharmacological VTE Prophylaxis: Clinical assessment deems Pt at low risk, no prophalaxis needed
[2017-02-11] MEDS: POTASSIUM CHLORIDE 20 MEQ TABLET PO SCH ×2 (17:49→21:19)
--- NOTE | 2017-02-11 22:06 | ECHO Report ---
Bruna Zuniga Exam Date: 02/11/2017 08:00 Referring Physician: Technologist: Nia Contreras RDCS Age: 71 Ht (in): 63 Wt (lb): 192 Gender: F Exam Location: [facility] Echo Indications: Chest pain, unspecified, TANYA, Dyslipidemia, Dyspnea, unspecified, COPD, Pulmonary HTN, Hypokalemia BP: 144 / 71 HR: 72 Rhythm: Sinus Technical Quality: Good IMPRESSIONS Mild left ventricular hypertrophy. Left ventricular ejection fraction is estimated at 60 %. Mild atrial enlargement in apical view (elongated LA). Mild mitral valve regurgitation. Mild aortic valve sclerosis without stenosis. Mild aortic valve regurgitation. Trace to mild tricuspid valve regurgitation. Tricuspid regurgitation velocities suggest a PAP of 47 mmHg. MEASUREMENTS (Male / Female) Normal Values 2D ECHO LV Diastolic Diameter PLAX 4.6 cm 4.2 - 5.9 / 3.9 - 5.3 cm LV Systolic Diameter PLAX 3.0 cm LV Fractional Shortening PLAX 36.2 % IVS Diastolic Thickness 1.0 cm 0.6 - 1.0 / 0.6 - 0.9 cm LVPW Diastolic Thickness 1.0 cm 0.6 - 1.0 / 0.6 - 0.9 cm RV Internal Dim ED PLAX 3.8 cm Aortic Root Diameter 3.5 cm LA Systolic Diameter LX 3.7 cm 3.0 - 4.0 / 2.7 - 3.8 cm DOPPLER TR Peak Velocity 306.0 cm/s TR Peak Gradient 37.5 mmHg FINDINGS Left Ventricle Normal left ventricular cavity size. Mild left ventricular hypertrophy. Left ventricular ejection fraction is estimated at 60 %. Right Ventricle The right ventricle is normal in size and function. Right Atrium The right atrium is normal in size. Left Atrium Mild atrial enlargement in apical view (elongated LA). Mitral Valve Morphologically normal mitral valve. Mild mitral valve regurgitation. Aortic Valve Mild aortic valve sclerosis without stenosis. Mild aortic valve regurgitation. Tricuspid Valve Morphologically normal tricuspid valve. Trace to mild tricuspid valve regurgitation. Tricuspid regurgitation velocities suggest a PAP of 47 mmHg. Pulmonic Valve Morphologically normal pulmonic valve without significant stenosis. There is no pulmonic regurgitation. Pericardium Normal pericardium without effusion. Aorta Normal ascending aorta dimension. Pepito Milian MD (Electronically Signed) Final Date: 11 February 2017 22:06
[2017-02-12] MEDS: SODIUM CHLORIDE 0.45% 1,000 ML IV SCH (01:55)
[2017-02-12 04:32] LABS: Basophils % 0.6 % (0.0-0.8); Eosinophils # 0.2 10*3/uL (0.0-0.87); Eosinophils % 3.4 % (0.00-10.9); Hematocrit 35.5 VOL% (35.7-47.0); Hemoglobin 11.7 GM/DL (12.0-16.0); Immature Granulocytes % 0.4 %; Immature Granulocytes Absolute 0.02 #; Lymphocytes % 37.3 % (21.3-54.2); Mean Corpuscular Hemoglobin 30 PG (27-34); Mean Corpuscular Volume 89.4 FL (87-102); Mean Platelet Volume 10.1 FL (9.6-12.0); Monocytes # 0.6 10*3/uL (0.11-0.8); Monocytes % 10.5 % (1.7-12.7); Neutrophils # 2.5 10*3/uL (1.4-7.4); Neutrophils % 47.8 % (38.7-73.9); Platelet Count 170 T/CUMM (130-400); Red Blood Count 3.97 MC/CUMM (3.8-5.5); Red Cell Distribution Width 14.3 % (9.3-17.3); White Blood Count 5.3 T/CUMM (4-12)
[2017-02-12 04:57] LABS: Calcium 8.8 MG/DL (8.5-10.1); Magnesium 2.3 MG/DL (1.8-2.4); Osmolality,Calculated 281.3 MOS/KG (273-304); Potassium 4.2 MMOL/L (3.5-5.1)
[2017-02-12 04:58] LABS: Calcium 8.9 MG/DL (8.5-10.1); Magnesium 2.3 MG/DL (1.8-2.4); Osmolality,Calculated 281.3 MOS/KG (273-304); Potassium 4.2 MMOL/L (3.5-5.1)
[2017-02-12 07:42] VITALS: BP 134/75
[2017-02-12] MEDS: ARFORMOTEROL 15 MCG/2 ML NEB RESP TX SCH (07:55)
[2017-02-12] MEDS: BUDESONIDE 0.25 MG/2 ML NEB RESP TX SCH (07:56)
--- NOTE | 2017-02-12 09:01 | Cardiology Progress Note ---
Assessment and Plan - Time spent with patient Time spent with patient: Greater than 30 minutes (1) Dyspnea on exertion Status: Acute Assessment and plan: SEE PLAN OF CARE LISTED BELOW Current Visit: Yes (2) Hypertension Status: Chronic Assessment and plan: SEE PLAN OF CARE LISTED BELOW Current Visit: Yes (3) Chest pain Status: Acute Assessment and plan: SEE PLAN OF CARE LISTED BELOW Current Visit: Yes (4) COPD (chronic obstructive pulmonary disease) Status: Chronic Assessment and plan: SEE PLAN OF CARE LISTED BELOW Current Visit: Yes (5) Dyslipidemia Status: Chronic Assessment and plan: SEE PLAN OF CARE LISTED BELOW Current Visit: Yes (6) Obstructive sleep apnea Status: Chronic Assessment and plan: SEE PLAN OF CARE LISTED BELOW Current Visit: Yes Cardiology - PN: Subj Interval history: BREAST SURGEON: DR. WOLFF Ms. Zuniga, 71WF, previously followed by Dr. Wolff. Risk factors include: Hypertension, dyslipidemia, obesity, family history of premature coronary artery disease, sedentary lifestyle. History of COPD, obstructive sleep apnea ( compliant with device). Patient had a heart catheterization 02/22/[address] Wolff which revealed no significant coronary obstruction. Presented to the ED of [facility] 02/10/2017 with complaints of chest pain located in the left upper chest area. This has been occurring intermittently 1 week. Located in the left upper chest area and is reproducible to palpation. When she turns her head to the left side the chest pain radiates to her left scapula area. Cardiac biomarkers are negative, EKG is unremarkable. More concerning, however, patient reports a decrease in her exercise tolerance since July 2016. States she cannot take 2 flights of stairs without having to rest due to shortness of breath. She believes she could have taken 2 flights of stairs without difficulty approximately 1 year ago. She no longer walks to her mailbox and back, instead drives her car. She avoids many activities she previously could perform due to significant shortness of breath. Denies cough. She feels as if the shortness of breath is worsening in intensity, duration and frequency. FEBRUARY 11, 2017: Patient underwent elective heart catheterization performed by Dr. Valerio with the following noted: Impression: 1. Right dominant system 2. Normal coronary arteries other than mild irregularities, without any discrete lesions. Recommendation discussion for Dr. Valerio include: Given these findings is clear Ms. Zuniga chest pain is not related to coronary artery disease. If LV function is needed echocardiogram could be used to evaluate this and can be performed outpatient. She will need to keep her right radial access site clean, when she will be sent to the floor for routine post cath observation. FEBRUARY 12, 2017: Overnight, patient has done well. Labs are stable overnight as are vital signs. Right radial access site free of hematoma, 2+ pulse noted, capillary refill brisk distally. Chest pain has improved. From a cardiology standpoint, she is stable for discharge home but will will defer to the attending. I will schedule her for an outpatient echocardiogram to be performed at [facility]. She would then be given a follow-up appointment to see Dr. Wolff in approximately 2-3 weeks. ASSESSMENT/PLAN: 1. CHEST PAIN - appears to be musculoskeletal in nature given the reproducibility component. We will treat with Neurontin and Tramadol. 2. CASTANEDA - we have ruled out her dyspnea on exertion is related to CAD. Will order outpatient echocardiogram to be performed in the next several weeks with follow-up appointment with Dr. Wolff thereafter. 3. HYPERTENSION - usually well controlled. Currently on beta blockade. Will adjust medications accordingly during the hospital stay. 4. DYSLIPIDEMIA - Crestor each evening. LDL 79 5. COPD - continue current plan of care Exam (Progress Note) - Constitutional Vitals: Period Temp Pulse Resp BP Sys/Mckeon Pulse Ox Last 24 Hr 97.7 F-98.4 F 65-82 14-20 128-151/69-79 92-99 Exam: General: [Appears well with no apparent distress.] [Pleasant and cooperative. ] [Appears comfortable.] HEENT: [PERRL, normocephalic, atraumatic. Mucous membranes moist. No jaundice noted. Conjunctiva moist and clear, sclerae anicteric] Neck: No JVD/HJR, no thyromegaly or lymphadenopathy noted. No carotid bruit appreciated Cardiac: [Regular rate and rhythm.] [No murmur rub or gallop.] PMI is nondisplaced. Lungs: [Clear to auscultation without accessory muscle use to assist the respiratory pattern.] Not requiring oxygen Abdomen: Soft, bowel sounds normoactive. Nontender and nondistended. No abdominal bruit or thrill noted. No masses noted. Musculoskeletal: No fluid collection. Decreased range of motion is noted. Extremities: Right radial access site free of hematoma. No clubbing, cyanosis noted. [ No edema noted.] Upper extremity pulses 2+. Lower extremity pulses 2+ . Capillary refill less than 3 seconds. Skin: No unusual lesions or rashes. No skin breakdown appreciated. Neuro: Awake, alert and oriented 3. Moves all extremities well without hemiparesis or paralysis. No essential tremor is appreciated. Result/EKG - Labs CBC & BMP: 02/12/17 04:09 02/12/17 04:09 Lab Results: I have reviewed the past 24 hour labs Labs: Laboratory Results - last 24 hr 02/11/17 02/11/17 02/11/17 08:28 08:28 08:28 WBC 4.3 D 4.0 RBC 4.45 4.41 Hgb 13.0 13.1 Hct 39.7 39.3 MCV 89.2 89.1 MCH 29 30 MCHC 32.7 33.3 RDW 14.3 14.5 Plt Count 166 170 MPV 10.2 10.5 Neut % (Auto) 44.2 45.0 Lymph % (Auto) 43.1 42.4 [place] % (Auto) 9.2 8.9 Eos % (Auto) 2.5 3.0 Baso % (Auto) 0.5 0.2 Neut # (Auto) 1.9 1.8 Lymph # (Auto) 1.9 1.7 [place] # (Auto) 0.4 0.4 Eos # (Auto) 0.1 0.1 Baso # (Auto) 0.0 0.0 Immature Gran % 0.5 0.5 Nucleated RBC % 0.0 0.0 Immature Gran # 0.02 0.02 Nucleated RBCs # 0.00 0.00 Immature Plt Fraction 0.0 0.0 Sodium 140 Potassium 3.3 L Chloride 104 Carbon Dioxide 28 Anion Gap 11.3 BUN 16 Creatinine 1.10 H GFR Calculation 56 BUN/Creatinine Ratio 14.00 Glucose 105 Calculated Osmolality 279.4 Calcium 9.3 Magnesium 2.2 Troponin I Triglycerides Cholesterol LDL Cholesterol VLDL Cholesterol HDL Cholesterol Heart Disease Risk Ratio 02/11/17 02/11/17 02/12/17 08:28 08:28 04:09 WBC 5.3 D RBC 3.97 Hgb 11.7 L Hct 35.5 L MCV 89.4 MCH 30 MCHC 33.0 RDW 14.3 Plt Count 170 MPV 10.1 Neut % (Auto) 47.8 Lymph % (Auto) 37.3 [place] % (Auto) 10.5 Eos % (Auto) 3.4 Baso % (Auto) 0.6 Neut # (Auto) 2.5 Lymph # (Auto) 2.0 [place] # (Auto) 0.6 Eos # (Auto) 0.2 Baso # (Auto) 0.0 Immature Gran % 0.4 Nucleated RBC % 0.0 Immature Gran # 0.02 Nucleated RBCs # 0.00 Immature Plt Fraction 0.0 Sodium Potassium Chloride Carbon Dioxide Anion Gap BUN Creatinine GFR Calculation BUN/Creatinine Ratio Glucose Calculated Osmolality Calcium Magnesium Troponin I < 0.015 Triglycerides 196 H Cholesterol 161 LDL Cholesterol 79.0 VLDL Cholesterol 39.2 HDL Cholesterol 43 Heart Disease Risk Ratio 3.74 02/12/17 02/12/17 04:09 04:09 WBC RBC Hgb Hct MCV MCH MCHC RDW Plt Count MPV Neut % (Auto) Lymph % (Auto) [place] % (Auto) Eos % (Auto) Baso % (Auto) Neut # (Auto) Lymph # (Auto) [place] # (Auto) Eos # (Auto) Baso # (Auto) Immature Gran % Nucleated RBC % Immature Gran # Nucleated RBCs # Immature Plt Fraction Sodium 141 141 Potassium 4.2 4.2 Chloride 107 106 Carbon Dioxide 27 28 Anion Gap 11.2 11.2 BUN 15 16 Creatinine 1.10 H 1.10 H GFR Calculation 56 56 BUN/Creatinine Ratio 13.00 14.00 Glucose 96 100 Calculated Osmolality 281.3 281.3 Calcium 8.8 8.9 Magnesium 2.3 2.3 Troponin I Triglycerides Cholesterol LDL Cholesterol VLDL Cholesterol HDL Cholesterol Heart Disease Risk Ratio - Diagnostic Findings Procedure: Chest x-ray: report reviewed by me - EKG EKG results: interpreted by hi EKG shows: sinus rhythm Quality Measures - VTE Contraindication to Pharmacological VTE Prophylaxis: Clinical assessment deems Pt at low risk, no prophalaxis needed Specialty Discharge - Follow Up or Referrals Follow up with: Héctor Wolff MD [Physician] - (Echocardiogram at [facility] in approximately 2-3 weeks RE: SOB, cardiac eval, edema. F/U appointment Dr. Wolff in 3-4 weeks. )
--- NOTE | 2017-02-12 09:11 | Discharge Summary ---
Hospital Course - Hospital Course Hospital Course: 71-year-old white female who is admitted for atypical chest pain for approximately 6 days. She was admitted to the hospitalist service and treated medically. Cardiology was asked see in consultation. On February 11, 2017 patient underwent elective cardiac catheterization revealing a right dominant system with normal coronary arteries other than mild irregularities without any discrete lesions. It is felt that this was noncardiac in etiology and that she could be discharged home with outpatient follow-up. She will see Dr. Wolff in the clinic in approximately 2-3 weeks with an outpatient echocardiogram. - Time spent with patient Time with patient DS: Less than 30 minutes Diagnosis - Discharge Diagnosis (1) Chest pain Status: Acute Specialty Discharge - Follow Up or Referrals Follow up with: Héctor Wolff MD [Physician] - (Echocardiogram at [facility] in approximately 2-3 weeks RE: SOB, cardiac eval, edema. F/U appointment Dr. Wolff in 3-4 weeks. ) Discharge Plan - Discharge Data Disposition: Disch To Home/Self Care Condition at Discharge: Stable Discharge Diet: advance to your usual diet Activity: resume usual activities as tolerated Hygiene: no restrictions, may shower Driving: no restrictions Contact your physician if you experience:: fever over 101, Redness or swelling, Shortness of breath, Bleeding - Discharge Medications New Acetaminophen Tab [Tylenol Tab] 325 mg PO Q4H PRN tablet PRN Reason: fever, headache/body aches Continue Fluticasone/Vilanterol [Breo Ellipta 200-25 Mcg INH] 1 puff INH QAM Citalopram [CeleXA] 40 mg PO QAM Rosuvastatin [Crestor] 10 mg PO QAM hydroCHLOROthiazide [Hydrochlorothiazide] 25 mg PO QAM Esomeprazole Magnesium [Esomeprazole] 40 mg PO BEDTIME Albuterol Tab [Proventil Tab] 1 mg PO TID Cetirizine Tab [ZyrTEC Tab] 10 mg PO BEDTIME Cholecalciferol (Vitamin D3) [Vitamin D3] 2,000 unit PO QAM Ferrous Sulfate Tab [Feosol Original Tab] 325 mg PO QAM Gabapentin 300 mg PO BEDTIME Atenolol 50 mg PO QAM Potassium Chloride 10 meq PO QAM Montelukast Tab [Singulair Tab] 10 mg PO BID prednisoLONE acetate [PrednisoLONE Acetate 1% Oph Susp] 2 drop LEFT EYE QID - Follow Up or Referral Follow Up: Héctor Wolff MD [Physician] - (Echocardiogram at [facility] in approximately 2-3 weeks RE: SOB, cardiac eval, edema. F/U appointment Dr. Wolff in 3-4 weeks. ) - Forms/Instructions Instructions: Acute Coronary Syndrome Exam - Constitutional Vitals: Period Temp Pulse Resp BP Sys/Mckeon Pulse Ox Last 24 Hr 97.7 F-98.4 F 65-82 14-20 128-151/69-79 92-99 General appearance: no acute distress - Head Head exam: Present: normocephalic, atraumatic - Eye Eye exam: Present: EOMI Pupils: Present: ARI - ENT ENT exam: Present: normal exam - Neck Neck exam: Present: normal inspection - Respiratory Respiratory exam: Present: clear to auscultation bilaterally - Cardiovascular Cardiovascular exam: Present: regular rate and rhythm - GI/Abdominal GI/Abdominal exam: Present: normal bowel sounds, soft. Absent: mass, tenderness , rebound - Extremities Exam Extremities exam: Absent: calf tenderness, edema - Neurological Exam Neurological exam: Present: alert, oriented X3, CN II-XII intact. Absent: motor sensory deficit - Psychiatric Psychiatric exam: Present: normal affect, normal mood. Absent: agitated, anxious - Skin Skin exam: Present: warm, dry. Absent: erythema Discharge Results Procedures and tests throughout hospitalization: Pending Orders 02/10/17 12:21 Urinalysis Stat 02/11/17 11:15 CL heart Routine Labs on day of discharge: Labs from last 24 hours 02/12/17 02/12/17 02/12/17 04:09 04:09 04:09 WBC 5.3 D RBC 3.97 Hgb 11.7 L Hct 35.5 L MCV 89.4 MCH 30 MCHC 33.0 RDW 14.3 Plt Count 170 MPV 10.1 Neut % (Auto) 47.8 Lymph % (Auto) 37.3 [place] % (Auto) 10.5 Eos % (Auto) 3.4 Baso % (Auto) 0.6 Neut # (Auto) 2.5 Lymph # (Auto) 2.0 [place] # (Auto) 0.6 Eos # (Auto) 0.2 Baso # (Auto) 0.0 Immature Gran % 0.4 Nucleated RBC % 0.0 Immature Gran # 0.02 Nucleated RBCs # 0.00 Immature Plt Fraction 0.0 Sodium 141 141 Potassium 4.2 4.2 Chloride 106 107 Carbon Dioxide 28 27 Anion Gap 11.2 11.2 BUN 16 15 Creatinine 1.10 H 1.10 H GFR Calculation 56 56 BUN/Creatinine Ratio 14.00 13.00 Glucose 100 96 Calculated Osmolality 281.3 281.3 Calcium 8.9 8.8 Magnesium 2.3 2.3 Troponin I Triglycerides Cholesterol LDL Cholesterol VLDL Cholesterol HDL Cholesterol Heart Disease Risk Ratio 02/11/17 02/11/17 02/11/17 08:28 08:28 08:28 WBC 4.0 RBC 4.41 Hgb 13.1 Hct 39.3 MCV 89.1 MCH 30 MCHC 33.3 RDW 14.5 Plt Count 170 MPV 10.5 Neut % (Auto) 45.0 Lymph % (Auto) 42.4 [place] % (Auto) 8.9 Eos % (Auto) 3.0 Baso % (Auto) 0.2 Neut # (Auto) 1.8 Lymph # (Auto) 1.7 [place] # (Auto) 0.4 Eos # (Auto) 0.1 Baso # (Auto) 0.0 Immature Gran % 0.5 Nucleated RBC % 0.0 Immature Gran # 0.02 Nucleated RBCs # 0.00 Immature Plt Fraction 0.0 Sodium Potassium Chloride Carbon Dioxide Anion Gap BUN Creatinine GFR Calculation BUN/Creatinine Ratio Glucose Calculated Osmolality Calcium Magnesium Troponin I < 0.015 Triglycerides 196 H Cholesterol 161 LDL Cholesterol 79.0 VLDL Cholesterol 39.2 HDL Cholesterol 43 Heart Disease Risk Ratio 3.74 02/11/17 02/11/17 08:28 08:28 WBC 4.3 D RBC 4.45 Hgb 13.0 Hct 39.7 MCV 89.2 MCH 29 MCHC 32.7 RDW 14.3 Plt Count 166 MPV 10.2 Neut % (Auto) 44.2 Lymph % (Auto) 43.1 [place] % (Auto) 9.2 Eos % (Auto) 2.5 Baso % (Auto) 0.5 Neut # (Auto) 1.9 Lymph # (Auto) 1.9 [place] # (Auto) 0.4 Eos # (Auto) 0.1 Baso # (Auto) 0.0 Immature Gran % 0.5 Nucleated RBC % 0.0 Immature Gran # 0.02 Nucleated RBCs # 0.00 Immature Plt Fraction 0.0 Sodium 140 Potassium 3.3 L Chloride 104 Carbon Dioxide 28 Anion Gap 11.3 BUN 16 Creatinine 1.10 H GFR Calculation 56 BUN/Creatinine Ratio 14.00 Glucose 105 Calculated Osmolality 279.4 Calcium 9.3 Magnesium 2.2 Troponin I Triglycerides Cholesterol LDL Cholesterol VLDL Cholesterol HDL Cholesterol Heart Disease Risk Ratio DS: Provider Date of admission: 02/10/17 17:01 Primary care physician: . No PCP Donald Dickens MD Attending physician on admission: Marek Martinez III Discharging clinician: Prateek Dolan Expected date of discharge: 02/12/17
[2017-02-12] MEDS: PANTOPRAZOLE 40 MG TABLET PO SCH (09:39)
== END 2017-02-12 11:03 | disposition home or self-care (01) ==
LOC: N.EDINP 11:58 → N.ED 11:58 → SUATTDRO 17:01 → N.TELES 17:36
PROVIDERS: ADMIT Internal Medicine; ATTEND Hospitalist